=== PATIENT | male | born 1990 | race Caucasian/White ===

== ENCOUNTER 2022-08-09 14:51 | Emergency (ER) | payer SELFPAY ==
[~2022-08-09] VITALS: Wt 63.5 kg
[2022-08-09] MEDS ORDERED: NAPROSYN500 MG PO (17:45)
== END 2022-08-09 18:14 | disposition home or self-care (01) ==
LOC: ED 14:51
DX: S63.501A Unspecified sprain of right wrist, initial encounter (principal); X50.0XXA Overexertion from strenuous movement or load, initial encounter; Y93.89 Activity, other specified; Y92.89 Other specified places as the place of occurrence of the external cause; Y99.8 Other external cause status